=== PATIENT | male | born 1965 | race Caucasian/White ===

== ENCOUNTER → 2024-08-07 | Outpatient (CLI) | payer OTHER, SELFPAY ==
--- NOTE | 2024-08-07 09:24 | NEURO ---
NCS and/or EMG Patient Report Ordering Doctor: Carmine Arroyo DATE OF SERVICE: 08/07/24 Clinical Summary: 58 year old male patient with symptoms of numbness/tingling in the bilateral upper extremities. Symptoms occur primarily at night while lying in bed/sleeping and most pronounced diffusely in the left upper extremity. Nerve Conduction Studies Summary: Nerve conduction studies were performed in the bilateral upper extremities. The median-D2 SNAP distal latencies were prolonged bilaterally. The left ulnar-D2 SNAP distal latency was prolonged bilaterally with reduced amplitude on the right side. The left median-APB CMAP distal latency was prolonged. Needle Examination Summary: Needle examination of select muscles of the bilateral upper extremities demonstrated a higher proportion of motor unit action potentials with reduced recruitment, increased amplitude, increased duration, and polyphasia in the right abductor pollicis brevis muscle. Impression: This is an abnormal bilateral upper extremity study. There is electrodiagnostic evidence of the following - 1) Moderate, left median mononeuropathy at the wrist (carpal tunnel syndrome), with sensory and motor fiber demyelination 2) Severe, right median mononeuropathy at the wrist (carpal tunnel syndrome), with secondary motor fiber axonal loss There is no electrodiagnostic evidence of a right/left cervical radiculopathy. Multi Select Codes Neurology Neurology Interp Codes: 71250-65 Musc test done w/n test comp (interp) (2) and 22770-14 Nrv cndj test 13/> studies (interp)
== END | disposition home or self-care (01) ==
LOC: PSN 08:30
PROVIDERS: PCP Family Medicine; Referring Provider Orthopaedic Surgery Orthopaedic Surgery of the Spine; Visit Provider Orthopaedic Surgery Orthopaedic Surgery of the Spine
DX: G56.03 Carpal tunnel syndrome, bilateral upper limbs (principal)
CPT/HCPCS: 95886; 95913